=== PATIENT | female | born 1980 | race Caucasian/White ===

== ENCOUNTER 2017-05-18 08:15 | Emergency (ER) | payer MEDICAID ==
[~2017-05-18] VITALS: Ht 167.6 cm; Wt 156.0 kg
[2017-05-18] MEDS ORDERED: aspirin 81mg tab.chew PO ONE (08:45)
[2017-05-18] MEDS ORDERED: nitroGLYCERIN 0.4mg SUBLingual tab SL PRN (08:45)
[2017-05-18 09:29] LABS: BASOPHILS % (AUTO) 0.5 % (0-1); EOSINOPHILS # (AUTO) 0.2 X10'3 (0-0.9); EOSINOPHILS % (AUTO) 2.7 % (0-6); HEMATOCRIT 38.4 % (35.0-45.0); HEMOGLOBIN 12.7 g/dl (12.0-16.0); LYMPHOCYTES # (AUTO) 3.1 X10'3 (1.1-4.8); LYMPHOCYTES % (AUTO) 36.4 % (21-51); MEAN CORPUSCULAR HEMOGLOBIN 25.1 PG (27.0-31.0); MEAN CORPUSCULAR HGB CONC 32.9 % (33.0-36.5); MEAN CORPUSCULAR VOLUME 76.3 FL (78-98); MEAN PLATELET VOLUME 8.6 FL (7.4-10.4); MONOCYTES # (AUTO) 0.4 X10'3 (0-0.9); NEUTROPHILS # (AUTO) 4.9 X10'3 (1.8-7.7); NEUTROPHILS % (AUTO) 56.4 % (42-75); PLATELET COUNT 278 X10'3 (140-440); RED BLOOD COUNT 5.03 X10'6 (4.20-5.60); RED CELL DISTRIBUTION WIDTH 16.2 % (11.5-14.5); WHITE BLOOD COUNT 8.7 X10'3 (4.5-11.0)
[2017-05-18 09:40] LABS: PARTIAL THROMBOPLASTIN TIME 29 SECONDS (22-32)
[2017-05-18 09:44] LABS: ALANINE AMINOTRANSFERASE 23 U/L (12-78); ALBUMIN 3.2 G/DL (3.4-5.0); ALBUMIN/GLOBULIN RATIO 0.6 (1.1-1.5); ALKALINE PHOSPHATASE 108 IU/L (46-116); ANION GAP 8 (8-16); ASPARTATE AMINO TRANSFERASE 16 U/L (10-37); BILIRUBIN,TOTAL 0.4 MG/DL (0.1-1.0); BLOOD UREA NITROGEN 14 MG/DL (7-18); CHLORIDE 105 MMOL/L (99-107); CREATININE 0.61 MG/DL (0.40-0.90); GLUCOSE 96 MG/DL (70-104); SODIUM 141 MMOL/L (135-145); TOTAL CARBON DIOXIDE 27.9 MMOL/L (24-32); TOTAL PROTEIN 8.2 G/DL (6.4-8.2); eGFR > 90 ML/MIN
[2017-05-18] MEDS ORDERED: nitroGLYCERIN 0.4mg/hour patch TD ONE (10:20)
[2017-05-18] MEDS ORDERED: LORazepam 1 MG tablet PO ONE (10:40)
[2017-05-18 13:13] VITALS: BP 126/77
== END 2017-05-18 13:14 | disposition home or self-care (01) ==
LOC: ER 08:15
DX: R07.89 Other chest pain (principal)
CPT/HCPCS: 36415; 71045; 80053; 84484; 85025; 85610; 85730; 93005; 99285

== ENCOUNTER → 2018-05-30 | Emergency (ER) | payer MEDICAID ==
[~2018-05-30] VITALS: Ht 167.6 cm; Wt 157.0 kg
[~2018-05-30] MED LIST: ketorolac tromethamine 15mg/ml inj. IM ONE
--- NOTE | 2018-05-30 15:00 | NUR ---
pt in fast track area, in gyne room
[2018-05-30 15:09] LABS: BASOPHILS # (AUTO) 0.1 X10'3 (0-0.2); BASOPHILS % (AUTO) 0.9 % (0-1); EOSINOPHILS # (AUTO) 0.2 X10'3 (0-0.9); EOSINOPHILS % (AUTO) 1.7 % (0-6); HEMATOCRIT 40.1 % (35.0-45.0); HEMOGLOBIN 12.9 g/dl (12.0-16.0); LYMPHOCYTES # (AUTO) 2.9 X10'3 (1.1-4.8); LYMPHOCYTES % (AUTO) 29.5 % (21-51); MEAN CORPUSCULAR HEMOGLOBIN 25.1 PG (27.0-31.0); MEAN CORPUSCULAR HGB CONC 32.3 g/dL (33.0-36.5); MEAN CORPUSCULAR VOLUME 77.6 FL (78-98); MEAN PLATELET VOLUME 8.9 FL (7.4-10.4); MONOCYTES # (AUTO) 0.5 X10'3 (0-0.9); MONOCYTES % (AUTO) 5.1 % (2-12); NEUTROPHILS # (AUTO) 6.2 X10'3 (1.8-7.7); NEUTROPHILS % (AUTO) 62.8 % (42-75); PLATELET COUNT 266 X10'3 (140-440); RED BLOOD COUNT 5.16 X10'6 (4.20-5.60); RED CELL DISTRIBUTION WIDTH 16.7 % (11.5-14.5); WHITE BLOOD COUNT 9.8 X10'3 (4.5-11.0)
--- NOTE | 2018-05-30 15:26 | NUR ---
provider was in to speak with patient, awaiting ua result
[2018-05-30 15:32] LABS: URINE HCG NEGATIVE (NEG)
[2018-05-30 15:42] LABS: CLARITY,URINE TURBID (Clear); COLOR,URINE RED (Yellow)
[2018-05-30 15:46] LABS: UA COLLECTION TYPE CLN CATCH MIDSTREAM
[2018-05-30 15:49] LABS: BACTERIA,URINE FEW /HPF (Neg); MUCUS STRANDS FEW /LPF (Neg); RBC,URINE TNTC /HPF (0-2); SQUAMOUS EPITHELIAL CELL,UR FEW /LPF (FEW)
[2018-05-30 15:51] LABS: WBC,URINE 20-30 /HPF (0-4)
[2018-05-30 16:03] VITALS: BP 119/77
== END | disposition home or self-care (01) ==
LOC: ER 12:37
DX: N94.6 Dysmenorrhea, unspecified (principal)
CPT/HCPCS: 36415; 81001; 81025; 85025; 96372; 99283; J1885

== ENCOUNTER 2019-06-25 11:38 | Emergency (ER) | payer MEDICAID ==
[~2019-06-25] VITALS: Ht 167.6 cm; Wt 141.0 kg
[2019-06-25 13:06] VITALS: BP 92/35
== END 2019-06-25 13:45 | disposition home or self-care (01) ==
LOC: ER 11:38
DX: S33.5XXA Sprain of ligaments of lumbar spine, initial encounter (principal); S63.8X1A Sprain of other part of right wrist and hand, initial encounter; S23.3XXA Sprain of ligaments of thoracic spine, initial encounter; M25.552 Pain in left hip; M25.551 Pain in right hip; W01.0XXA Fall on same level from slipping, tripping and stumbling without subsequent striking against object, initial encounter; Y93.89 Activity, other specified; Y92.89 Other specified places as the place of occurrence of the external cause; Y99.8 Other external cause status
CPT/HCPCS: 72100; 73110; 73130; 73522; 99284

== ENCOUNTER 2020-01-04 13:03 | Emergency (ER) | payer MEDICAID ==
[~2020-01-04] VITALS: Ht 167.6 cm; Wt 139.0 kg
[2020-01-04 14:21] LABS: BASOPHILS % (AUTO) 0.7 % (0-1); EOSINOPHILS # (AUTO) 0.2 X10'3 (0-0.9); EOSINOPHILS % (AUTO) 2.6 % (0-6); HEMATOCRIT 40.4 % (35.0-45.0); HEMOGLOBIN 13.2 g/dl (12.0-16.0); LYMPHOCYTES # (AUTO) 1.9 X10'3 (1.1-4.8); LYMPHOCYTES % (AUTO) 27.7 % (21-51); MEAN CORPUSCULAR HEMOGLOBIN 27.5 PG (27.0-31.0); MEAN CORPUSCULAR HGB CONC 32.8 g/dL (33.0-36.5); MEAN CORPUSCULAR VOLUME 83.8 FL (78-98); MEAN PLATELET VOLUME 8.5 FL (7.4-10.4); MONOCYTES # (AUTO) 0.5 X10'3 (0-0.9); MONOCYTES % (AUTO) 7.8 % (2-12); NEUTROPHILS # (AUTO) 4.3 X10'3 (1.8-7.7); NEUTROPHILS % (AUTO) 61.2 % (42-75); PLATELET COUNT 234 X10'3 (140-440); RED BLOOD COUNT 4.82 X10'6 (4.20-5.60); WHITE BLOOD COUNT 6.9 X10'3 (4.5-11.0)
[2020-01-04 14:32] LABS: ALANINE AMINOTRANSFERASE 21 U/L (12-78); ALBUMIN 3.2 G/DL (3.4-5.0); ALBUMIN/GLOBULIN RATIO 0.7 (1.1-1.5); ALKALINE PHOSPHATASE 96 IU/L (46-116); ANION GAP 5 (8-16); ASPARTATE AMINO TRANSFERASE 27 U/L (10-37); BILIRUBIN,TOTAL 0.4 MG/DL (0.1-1.0); BLOOD UREA NITROGEN 15 MG/DL (7-18); BUN/CREATININE RATIO 20.5 (6.6-38.0); CALCIUM 8.8 MG/DL (8.5-10.1); CHLORIDE 104 MMOL/L (99-107); CREATININE 0.73 MG/DL (0.40-0.90); GLUCOSE 97 MG/DL (70-104); SODIUM 137 MMOL/L (135-145); TOTAL CARBON DIOXIDE 27.8 MMOL/L (24-32); TOTAL PROTEIN 7.7 G/DL (6.4-8.2); eGFR 88 ML/MIN
[2020-01-04 15:07] LABS: URINE HCG NEGATIVE (NEG)
[2020-01-04 15:11] LABS: CLARITY,URINE SLIGHTLY CLOUDY (Clear); COLOR,URINE YELLOW (Yellow); GLUCOSE, URINE NEGATIVE (Neg); KETONES,URINE NEGATIVE (Neg); LEUKOCYTE ESTERASE ,URINE TRACE (Neg); NITRITES, URINE NEGATIVE (Neg); OCCULT BLOOD,URINE TRACE-INTACT (Neg); PH,URINE 6.5 (4.8-8.0); PROTEIN,URINE NEGATIVE (Neg); UROBILINOGEN,URINE 0.2 E.U/dL (0.2-1.0)
[2020-01-04 15:19] LABS: UA COLLECTION TYPE VOIDED
[2020-01-04 15:20] LABS: MUCUS STRANDS MANY /LPF (Neg); SQUAMOUS EPITHELIAL CELL,UR MODERATE /LPF (FEW)
[2020-01-04 15:21] LABS: BACTERIA,URINE 1+ /HPF (Neg)
[2020-01-04 15:22] LABS: WBC,URINE 0-4 /HPF (0-4)
--- NOTE | 2020-01-04 15:22 | NUR ---
Pt ambulatory to xray.
[2020-01-04 15:24] LABS: D-DIMER 0.77 MG/L FEU (0-0.50)
[2020-01-04] MEDS ORDERED: iohexol 350MG/ML 100ml bottle IV ONE (16:03)
--- NOTE | 2020-01-04 17:12 | NUR ---
Pt to CT
[2020-01-04] MEDS ORDERED: AZIT-63 PO (18:52)
[2020-01-04 19:02] VITALS: BP 126/89
== END 2020-01-04 19:06 | disposition home or self-care (01) ==
LOC: ER 13:04
DX: J18.9 Pneumonia, unspecified organism (principal); R10.11 Right upper quadrant pain; R11.2 Nausea with vomiting, unspecified; Z79.899 Other long term (current) drug therapy
CPT/HCPCS: 36415; 71045; 71275; 80053; 81001; 81025; 83880; 84484; 85025; 85379; 87088; 93005; 99285; Q9967

== ENCOUNTER 2020-04-12 10:36 | Emergency (ER) | payer MEDICAID ==
[~2020-04-12] VITALS: Ht 167.6 cm; Wt 136.4 kg
[2020-04-12] MEDS ORDERED: dexamethasone sod phosphate 10mg/ml inj PO STA (10:50)
== END 2020-04-12 11:50 | disposition home or self-care (01) ==
LOC: ER 10:37
DX: J02.8 Acute pharyngitis due to other specified organisms (principal); Z20.822 Contact with and (suspected) exposure to COVID-19
CPT/HCPCS: 36415; 87635; 99283; J1100

== ENCOUNTER 2020-09-16 18:25 | Emergency (ER) | payer MEDICAID ==
[~2020-09-16] VITALS: Ht 167.6 cm; Wt 131.8 kg
[2020-09-16 19:02] LABS: BASOPHILS # (AUTO) 0.1 X10'3 (0-0.2); BASOPHILS % (AUTO) 0.7 % (0-1); EOSINOPHILS # (AUTO) 0.3 X10'3 (0-0.9); EOSINOPHILS % (AUTO) 3.4 % (0-6); HEMATOCRIT 37.9 % (35.0-45.0); HEMOGLOBIN 12.7 g/dl (12.0-16.0); LYMPHOCYTES % (AUTO) 40.9 % (21-51); MEAN CORPUSCULAR HEMOGLOBIN 27.8 PG (27.0-31.0); MEAN CORPUSCULAR HGB CONC 33.5 g/dL (33.0-36.5); MEAN CORPUSCULAR VOLUME 83.1 FL (78-98); MEAN PLATELET VOLUME 8.8 FL (7.4-10.4); MONOCYTES # (AUTO) 0.4 X10'3 (0-0.9); PLATELET COUNT 260 X10'3 (140-440); RED BLOOD COUNT 4.56 X10'6 (4.20-5.60); RED CELL DISTRIBUTION WIDTH 15.1 % (11.5-14.5); WHITE BLOOD COUNT 9.9 X10'3 (4.5-11.0)
[2020-09-16 19:22] LABS: ALANINE AMINOTRANSFERASE 35 U/L (12-78); ALBUMIN 3.4 G/DL (3.4-5.0); ALBUMIN/GLOBULIN RATIO 0.9 (1.1-1.5); ALKALINE PHOSPHATASE 105 IU/L (46-116); ANION GAP 8 (8-16); ASPARTATE AMINO TRANSFERASE 30 U/L (10-37); BILIRUBIN,TOTAL 0.3 MG/DL (0.1-1.0); BLOOD UREA NITROGEN 14 MG/DL (7-18); BUN/CREATININE RATIO 22.6 (6.6-38.0); CALCIUM 8.3 MG/DL (8.5-10.1); CHLORIDE 106 MMOL/L (99-107); CREATININE 0.62 MG/DL (0.40-0.90); GLUCOSE 98 MG/DL (70-104); POTASSIUM 4.1 MMOL/L (3.5-5.1); SODIUM 138 MMOL/L (135-145); TOTAL CARBON DIOXIDE 24.4 MMOL/L (24-32); TOTAL PROTEIN 7.2 G/DL (6.4-8.2); eGFR > 90 ML/MIN
[2020-09-16] MEDS ORDERED: DULO60CA65 PO (21:31)
[2020-09-16] MEDS ORDERED: ATOR10TA70 PO (21:31)
[2020-09-16] MEDS ORDERED: PENI250T2 PO (22:33)
[2020-09-16] MEDS ORDERED: PRED20TA PO (22:33)
[2020-09-16] MEDS ORDERED: LIDO20SO16 PO (22:33)
[2020-09-16 22:49] VITALS: BP 131/80
== END 2020-09-16 22:50 | disposition home or self-care (01) ==
LOC: ER 18:25
DX: K04.7 Periapical abscess without sinus (principal); R06.02 Shortness of breath; F41.9 Anxiety disorder, unspecified; R07.89 Other chest pain; K08.89 Other specified disorders of teeth and supporting structures; Z79.2 Long term (current) use of antibiotics; Z79.899 Other long term (current) drug therapy
CPT/HCPCS: 36415; 71045; 80053; 83880; 84484; 85025; 93005; 99285

== ENCOUNTER 2022-07-31 05:03 | Emergency (ER) | payer MEDICAID ==
[~2022-07-31] VITALS: Ht 172.7 cm; Wt 129.6 kg
[~2022-07-31 05:03] MED LIST changes: +ATOR10TA70 PO; +DULO60CA65 PO; +LIDO20SO16 PO; -ketorolac tromethamine 15mg/ml inj. IM ONE
[2022-07-31 05:07] VITALS: BP 179/68
[2022-07-31] MEDS ORDERED: acetaminophen 325mg tablet PO ONE (06:20)
[2022-07-31] MEDS ORDERED: ondansetron 4mg rapidly disintigrating tab PO ONE (06:20)
[2022-07-31] MEDS ORDERED: dicyclomine 10 MG capsule PO ONE (06:20)
[2022-07-31] MEDS ORDERED: DICY10CA88 PO (06:20)
[2022-07-31] MEDS ORDERED: MELO-100 PO (06:20)
[2022-07-31] MEDS ORDERED: ketorolac trometh inj. 60 MG/2 ML VIAL IM ONE (06:20)
[2022-07-31] MEDS ORDERED: metoclopramide 10mg tablet PO ONE (06:20)
[2022-07-31] MEDS ORDERED: ACET-812 PO (06:20)
[2022-07-31] MEDS ORDERED: ketorolac trometh. 30mg/ml inj. IM ONE (06:25)
[2022-07-31 07:29] LABS: URINE HCG NEGATIVE (NEG)
== END 2022-07-31 07:47 | disposition home or self-care (01) ==
LOC: ER 05:04
DX: F41.9 Anxiety disorder, unspecified (principal); N94.6 Dysmenorrhea, unspecified; F17.200 Nicotine dependence, unspecified, uncomplicated; Z79.899 Other long term (current) drug therapy
CPT/HCPCS: 81025; 96372; 99284; J1885